=== PATIENT | male | born 1990 | race Caucasian/White ===

== ENCOUNTER 2017-08-01 06:37 | Emergency (ER) | payer OTHER ==
[~2017-08-01] VITALS: Ht 185.4 cm; Wt 106.8 kg
[2017-08-01] MEDS ORDERED: ASPIRIN 81 MG CHEW TABLET PO ONE (07:30)
[2017-08-01 07:59] LABS: BASO % 0.3 % (0.0-1.0); EOS # 0.2 10^3/uL (0.0-0.50); EOS % 1.6 % (0.0-3.0); IMMATURE GRANULOCYTE % 0.6 % (0-0); LYMPH # 0.9 10^3/uL (1.5-6.5); LYMPH % 9.5 % (24.0-44.0); MEAN CORPUSCULAR HEMOGLOBIN 29.2 pg (27.0-33.0); MEAN CORPUSCULAR HGB CONC 33.6 g/dl (32.0-36.5); MONO # 1.1 10^3/uL (0.0-0.8); MONO % 10.8 % (0.0-5.0); NEUTROPHILS # 7.6 10^3/uL (1.8-7.7); NEUTROPHILS % 77.2 % (36.0-66.0); PLATELET COUNT, AUTOMATED 249 10^3/uL (150-450); RED CELL DISTRIBUTION WIDTH 12.5 % (11.5-14.5); WHITE BLOOD COUNT 9.8 10^3/uL (4.0-10.0)
[2017-08-01 08:31] LABS: ALBUMIN 3.9 GM/DL (3.2-5.2); ALBUMIN/GLOBULIN RATIO 1.18 (1.00-1.93); ALKALINE PHOSPHATASE 56 U/L (45-117); ALT/SGPT 46 U/L (12-78); ANION GAP 6 MEQ/L (8-16); AST/SGOT 22 U/L (7-37); BILIRUBIN,DIRECT 0.2 MG/DL (0.0-0.2); BILIRUBIN,TOTAL 0.7 MG/DL (0.2-1.0); BLOOD UREA NITROGEN 16 MG/DL (7-18); CALCIUM LEVEL 8.7 MG/DL (8.5-10.1); CARBON DIOXIDE LEVEL 31 MEQ/L (21-32); CHLORIDE LEVEL 106 MEQ/L (98-107); CREATININE FOR GFR 1.13 MG/DL (0.70-1.30); GLOMERULAR FILTRATION RATE > 60.0 (>60); GLUCOSE, FASTING 94 MG/DL (70-105); SODIUM LEVEL 143 MEQ/L (136-145); TOTAL PROTEIN 7.2 GM/DL (6.4-8.2)
--- NOTE | 2017-08-01 09:15 | REP ---
Portable chest: Single view. History: Chest pain. Comparison study: No comparison study. Findings: The lungs are well inflated and clear. Pleural angles are sharp. Heart is not enlarged. EKG monitoring electrodes overlie the chest. No significant bony abnormality is seen. Pulmonary vasculature is not increased. Impression: No active disease. Signed by Arnold Shine MD 08/01/2017 03:54 P
--- NOTE | 2017-08-01 10:00 | REP ---
Right upper quadrant sonography: History: Upper abdominal pain times 12 hours. Comparison study: No comparison study. Findings: Scanning through the right upper quadrant of the abdomen demonstrates a normal sized, thin-walled gallbladder without evidence of stone or polyp. Common bile duct is normal measuring 0.3 cm in greatest diameter. No focal liver lesion is seen. Liver size is normal. No pancreatic abnormality is observed. No right renal abnormality is seen. There is no evidence of ascites. The right kidney measures 12.4 x 5.3 x 5.7 cm. Impression: Negative right upper quadrant sonography. Signed by Arnold Shine MD 08/01/2017 09:52 A
[2017-08-01 10:49] VITALS: BP 116/61
--- NOTE | 2017-08-02 16:38 | ECGEPIP ---
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
== END 2017-08-01 11:11 | disposition home or self-care (01) ==
LOC: M ED 06:37
DX: R07.89 Other chest pain (principal); R00.1 Bradycardia, unspecified; Z88.0 Allergy status to penicillin